=== PATIENT | male | born 1955 | race Caucasian/White ===

== ENCOUNTER 2021-04-24 05:54 | Day surgery (SDC) | payer OTHER ==
[2021-04-22 13:23] LABS: BASOPHILS % (AUTO) 1.2 % (0.0-5.0); EOSINOPHILS % (AUTO) 3.4 % (0.0-8.0); HEMATOCRIT 42.8 % (42-54); LYMPHOCYTES % (AUTO) 18.1 % (21.0-51.0); MEAN CORPUSCULAR HEMOGLOBIN 32.3 pg (27.0-33.0); MEAN CORPUSCULAR HGB CONC 35.7 g/dL (32.0-36.0); MEAN CORPUSCULAR VOLUME 90.3 fL (79-99); MONOCYTES % (AUTO) 8.8 % (3.0-13.0); NEUTROPHILS % (AUTO) 67.9 % (40.0-77.0); PLATELET COUNT (AUTO) 204 K/uL (130-400); RED BLOOD CELL COUNT(AUTO) 4.74 MIL/uL (4.50-6.20); RED CELL DISTRIBUTION WIDTH 13.1 % (11.0-15.5); WHITE BLOOD COUNT (AUTO) 11.4 K/uL (4.8-10.8)
[2021-04-23 09:25] VITALS: BP 128/78
[~2021-04-24] VITALS: Ht 177.8 cm; Wt 131.1 kg
[2021-04-24] VITALS (18 sets, daily range): BP systolic 82–119; BP diastolic 30–78
[~2021-04-24 05:54] MED LIST: AEC81 PO; ALLO100T PO; AMIT50TA3 PO; DIPY25TA31 PO; HYDR-3421 PO; INDA2.5T5 PO; KCIT5T PO; LISI40TA9 PO; METO100T14 PO; MULT-1285 PO; SIMV-46 PO; TOPI50TA24 PO
[2021-04-24] MEDS ORDERED: BUPIVACAINE/EPI/PF 0.25% 30ML VIAL IJ ONE (06:54)
[2021-04-24 07:13] LABS: POTASSIUM 2.9 mmol/L (3.5-5.1)
[2021-04-24] MEDS ORDERED: BACITRACIN 28.4 GM OINT TP ONE (07:13)
[2021-04-24] MEDS ORDERED: METHYLENE BLUE 5 MG/ML AMP ONE (07:13)
[2021-04-24] MEDS ORDERED: LACTATED RINGERS 1000ML 1,000 ML IV ONE (07:19)
[2021-04-24] MEDS ORDERED: GENTAMICIN SULFATE 80 MG/2 ML VIAL ONE (07:39)
[2021-04-24] MEDS ORDERED: CEFAZOLIN SODIUM 1 GM VIAL ONE ×2 (07:39→09:06)
[2021-04-24] MEDS ORDERED: POTASSIUM CHLORIDE 20MEQ/100ML 100 ML IV ONE (07:47)
[2021-04-24] MEDS ORDERED: SUCCINYLCHOLINE CHLORIDE 20 MG/ML 10 ML VIAL ONE (07:50)
[2021-04-24] MEDS ORDERED: LIDOCAINE HCL MPF 1% 5ML VIAL ONE (07:50)
[2021-04-24] MEDS ORDERED: MIDAZOLAM HCL 1 MG/ML 2ML VIAL ONE (07:50)
[2021-04-24] MEDS ORDERED: ROCURONIUM 10MG/1ML SYR 10 MG/ML ML ONE (07:51)
[2021-04-24] MEDS ORDERED: FENTANYL CITRATE PF 50 MCG/1 ML 2ML VIAL ONE (07:51)
[2021-04-24] MEDS ORDERED: PROPOFOL 10 MG/ML 20ML VIAL IV ONE (07:51)
[2021-04-24] MEDS ORDERED: EPHEDRINE SULFATE 50 MG/ML AMPULE ONE (08:45)
[2021-04-24] MEDS ORDERED: NOREPINEPHRINE BITARTRATE 1 MG/1 ML ML IV ONE (08:59)
[2021-04-24] MEDS ORDERED: ATROPINE 1MG SYG IVP ONE (09:16)
[2021-04-24] MEDS ORDERED: [UNRECOGNIZED DRUG - REMARK] IO SCH (10:00)
== END 2021-04-24 12:05 | disposition home or self-care (01) ==
LOC: DAH 05:54
PROVIDERS: ATTEND Plastic Surgery
DX: C82.61 Cutaneous follicle center lymphoma, lymph nodes of head, face, and neck (principal); Z20.822 Contact with and (suspected) exposure to COVID-19; I10 Essential (primary) hypertension; M10.9 Gout, unspecified; G47.30 Sleep apnea, unspecified; E66.01 Morbid (severe) obesity due to excess calories; Z90.89 Acquired absence of other organs; Z87.442 Personal history of urinary calculi; Z68.38 Body mass index [BMI] 38.0-38.9, adult
CPT/HCPCS: 15115; 21014; 36415 ×2; 80048 ×2; 85025; 87635; 88184; 88185; 88189; 88305; 88331; 88341; 88342; 88360; 93005; A4606; A4649; A6223; A6446; C9803; G0168; J0330; J0461; J0690 ×2; J1580; J2250; J2704; J3010; J3480; J3490 ×4; J7030; J7120; Q9968